=== PATIENT | female | born 1960 | race African-American/Black ===

== ENCOUNTER → 2018-07-13 16:33 | Outpatient (CLI) | payer MEDICARE, MEDICAID, SELFPAY ==
--- NOTE | 2018-07-13 16:46 | CT_ITS ---
STUDY: CT SOFT TISSUE NECK WITH CONTRAST REASON FOR EXAM: Female, 58 years old. Neoplasm of tonsils. RADIATION DOSAGE (If Supplied By Facility): CTDIvol = ( 19.97 ) mGy, DLP = ( 548.49 ) mGycm TECHNIQUE: The patient was scanned in a multi-detector CT scanner. High resolution transaxial imaging was performed following intravenous administration of 100 ml of Isovue 300 contrast material. Sagittal and coronal images were reconstructed. # Of Images: 282 Individualized dose optimization techniques were used for this CT. COMPARISON: None. FINDINGS: Normal bilateral parotid glands. Normal bilateral automatic lump making machine tender spaces. Normal bilateral parapharyngeal spaces. Normal bilateral carotid spaces. Normal bilateral sublingual and submandibular glands and spaces. Normal visualized nasopharynx. Normal retropharyngeal space. Normal perivertebral space. The tonsils are enlarged with 1.8 cm enhancing mass on the right, series 2 image 61/97. The visualized tongue, tongue base and oropharynx are normal. The visualized cervical lymph nodes (levels I-) are within normal size limits, and maintain normal morphology. There is no demonstrated cystic lesion. Normal epiglottis, bilateral vallecula and hypopharynx. The pre-epiglottic and paraglottic adipose spaces are normal. Normal visualized bilateral piriform sinuses, aryepiglottic folds, vocal cords, and arytenoid-cricoid articulations. Normal subglottic trachea. Normal bilateral lobes of the thyroid gland. Normal visualized pulmonary apices. Normal visualized paranasal sinuses. Normal visualized cervical spine. CT/Soft Tissue Neck WITH Contrast IMPRESSION: Enlarged tonsils with mass on the right side. Electronically Signed: Son Gamble MD at 18:08 EDT , Service support ,
[2018-07-14 08:19] LABS: CREATININE FINGERSTICK 0.64 mg/dL (0.55-1.02); EGFR FINGERSTICK > 60 mL/min (>60)
== END ==
PROVIDERS: Family Provider Internal Medicine; PCP Internal Medicine
DX: D10.4 Benign neoplasm of tonsil (principal); J35.1 Hypertrophy of tonsils
CPT/HCPCS: 70491; Q9967

== ENCOUNTER 2018-07-21 12:47 | Day surgery (SDC) | payer MEDICARE, MEDICAID, SELFPAY ==
--- NOTE | 2018-07-21 | TONS_PTH ---
PATIENT: MERE BONILLA [place] [facility] [id number] AGE/SX: 58/F ROOM: RE07/21/[address]: Dr. Iain James MD : 1960 BED: DIS: 07/21/2018 SPEC #: [id number] RECD: 07/21/18 15:12 STATUS: LIGIA REJohnathan #: [id number] NADINE: 07/21/18 00:[address]: Iain James DEPT: SURGICAL PATHOLOGY RECD BY: Prisca Arias ENTERED: 07/21/18 16:00 SP TYPE: TONSILS OTHR DR: Dr. Kasandra Collado MD Tissues: A - Tonsil, NOS B - Tonsil, NOS Procedures: Frozen Section (charge) Frozen Section Add[facility]l ([employer] Surgery Specimen Level III Frozen (no charge) HEADER OPERATION: Bilateral tonsillectomy, frozen section right tonsil PRE-OP DIAGNOSIS: Benign neoplasm of tonsil TISSUE SUBMITTED: A - Right tonsil for FS at 1507, B - Left tonsil FROZEN SECTION DIAGNOSIS A. Right tonsil: Negative for malignancy. YASMANI:shravan 07/21/18 MICROSCOPIC DIAGNOSIS A. Right tonsil, tonsillectomy: Reactive lymphoid hyperplasia. B. Left tonsil, tonsillectomy: Reactive lymphoid hyperplasia. YASMANI:shravan 07/23/18 MICROSCOPIC DESCRIPTION Slides are reviewed. GROSS DESCRIPTION A - Received fresh for frozen section diagnosis labeled with the patient's name is a specimen designated right tonsil. The specimen consists of an ovoid piece of ramos soft tissue consistent with tonsil that weighs 5 gm and measures 2.5 x 2 x 1.5 cm. The external surface is pink-ramos, smooth, glistening and somewhat lobulated. Focally it is hemorrhagic, granular and bears cautery artifact. Serial cross sections through the tonsil reveal normal tonsillar architecture. The specimen is serially sectioned and submitted entirely for frozen section diagnosis in three cassettes. / YASMANI:shravan 07/21/18 B - Received in formalin labeled with the patient's name and designated left tonsil. The specimen consists of a tonsil that weighs 2.7 gm and measures 3 x 1.5 x 0.7 cm. The external surface is pink-ramos, smooth, glistening and somewhat lobulated. Focally it is hemorrhagic, granular and bears cautery artifact. Serial cross sections through the tonsil reveal normal tonsillar architecture. The entire specimen is submitted in two cassettes. / SJ:shravan 07/22/18 TC:5 CPT: 39401 x2, 83601, 98849 x2
[2018-07-21 13:05] VITALS: BP 121/81; PULSE 65; RESP 16; TEMP 37.2; O2SAT 98; BMI 41.1
[2018-07-21 13:26] LABS: Bedside Glucose 80 mg/dL (70-110)
[2018-07-21] MEDS: Bacitracin 500 UNITS/GM PACKET (14:48)
--- NOTE | 2018-07-21 15:38 | PCM.OPRPT ---
Problem List (1) Benign neoplasm of tonsil Status: Chronic (2) Referred otalgia of right ear Status: Acute Report of Operation Date of Procedure: 07/21/18 Pre-Operative Diagnosis: Suspicious mass right tonsil Post-Operative Diagnosis: same Surgery/Procedure Performed:: Tonsillectomy Description of Surgical Findings:: Suzan is a 58-year-old female since evaluation of a firm swelling in the superior pole of the right tonsil. She suffered from tonsillar stones in the past and felt that this was the cause however office examination did not show an obvious impacted stone however there was a firm friable mass of the tonsil and given her complaints of ear pain on that side was worried some for a neoplastic process. CT scan was performed which did show an enhancing 1.8 cm mass in the right superior tonsil and excision for definitive evaluation for possible malignancy was advised that she was eager to proceed. The risks, alternatives, potential benefits, and complications were discussed at length and any questions answered to the patient and/or caregiver's satisfaction. Witnessed informed consent was obtained in the office, and the patient and/or caregiver was agreeable to proceed. Procedure went as follows: The patient was identified in the preoperative holding, brought to the operating room, was placed under general anesthesia and intubated. When appropriate anesthesia was obtained, the head of bed was rotated and the patient prepped and draped in usual sterile fashion. A Ayaz Calvin mouthgag was then placed and the patient suspended from the Baker stand. The oral cavity examined and is noted to have 3+ cryptic tonsillar hypertrophy. A firm mass was palpable within the right tonsil at the superior pole. Beginning on the right side the right tonsil was then grasped with a curved tenaculum and dissected from the underlying capsule with monopolar cautery. This was then sent as specimen. Similar procedure was then completed on the contralateral side. Frozen section evaluation of the right tonsillar mass was felt to be benign and as such no further tissue resection was undertaken. The oral and nasal cavities were then irrigated with saline solution, an NG tube was then placed to decompress the stomach. The patient was then returned to anesthesia, revived and extubated having tolerated the procedure well. Type of Anesthesia:: General Anesthesiologist: Iban Carrero Special Medications: none Specimen's removed: bilateral tonsils Drains: none Estimated Blood Loss (mL): 50 mL Fluids Replaced: 1000 mL Grafts/Implants Used: none - Complications none - Admit VTE Documentation VTE Present on Admission: No VTE Mechan Device Prophylaxis: SCD's VTE Pharm Prophylaxis ordered?: No
--- NOTE | 2018-07-21 15:43 | DCINST_ITS ---
Discharge Activity: Return to Normal Activity, May not drive while taking narcotic pain medications. Call your doctor if your incision/area has: Sudden Increased Bleeding Call your doctor if you observe: Fever of 101 or Higher, Uncontrolled pain Allergies/Adverse Reactions: Allergies meperidine [From Demerol] Allergy (Verified 07/20/18 16:14) Other SLOWS HEART morphine Allergy (Verified 07/20/18 16:14) Nausea/Vom/Diarrhea SURGICAL TAPE Adverse Reaction (Uncoded 07/20/18 16:15) Itching Medications to take at Discharge Amoxicillin [Amoxil] 500 mg PO TID 07/20/18 Atorvastatin Calcium 10 mg PO DAILY 07/20/18 Carvedilol 12.5 mg PO DAILY 07/20/18 Gabapentin [Neurontin] 400 mg PO QHS 07/20/18 Meloxicam 15 mg PO DAILY 07/20/18 Montelukast [Singulair] 10 mg PO DAILY PRN PRN 07/20/18 Omeprazole 40 mg PO DAILY 07/20/18 Spironolactone 25 mg PO DAILY 07/20/18 Vilazodone Hydrochloride [Viibryd] 10 mg PO QHS 07/20/18 Primary Care Physician: Kasandra Collado MD [Primary Care Provider] - Test Results: Test results from this visit will be discussed in further detail at your follow- up appointment, if applicable. Please Follow Up With: Iain James MD When: 2 weeks Proposed Discharge Date: 07/21/18
[2018-07-21 15:44] VITALS: BP 121/81; BP 155/93; PULSE 82; RESP 18; TEMP 36.3; O2SAT 99
[2018-07-21 16:00] VITALS: BP 121/81; BP 146/72; PULSE 62; RESP 16; O2SAT 100
[2018-07-21 16:15] VITALS: BP 121/81; BP 138/84; PULSE 58; RESP 18; O2SAT 100
[2018-07-21 16:16] LABS: Bedside Glucose 83 mg/dL (70-110)
[2018-07-21 16:31] VITALS: BP 121/81; BP 157/90; PULSE 54; RESP 18; TEMP 36.7; O2SAT 100
[2018-07-21] MEDS: Ibuprofen 100 MG/5 ML UDC 400 MG PO (16:52)
[2018-07-21 19:30] VITALS: BP 121/81; BP 132/77; PULSE 88; RESP 16; TEMP 37.9; O2SAT 96
== END 2018-07-21 19:44 | disposition home or self-care (01) ==
LOC: SDC 12:49 → AC 12:49
PROVIDERS: Family Provider Internal Medicine; PCP Internal Medicine; Referring Provider Otolaryngology; Visit Provider Otolaryngology
PROC: (CPT 42826; principal; 2018-07-21 14:15)
DX: D10.4 Benign neoplasm of tonsil (principal); J35.1 Hypertrophy of tonsils; H92.01 Otalgia, right ear; I10 Essential (primary) hypertension; E11.9 Type 2 diabetes mellitus without complications; E78.00 Pure hypercholesterolemia, unspecified; E78.5 Hyperlipidemia, unspecified; M19.90 Unspecified osteoarthritis, unspecified site; K21.9 Gastro-esophageal reflux disease without esophagitis; F32.9 Major depressive disorder, single episode, unspecified; Z79.899 Other long term (current) drug therapy; Z87.891 Personal history of nicotine dependence
CPT/HCPCS: 00170; 42826; 82962; 88304; 88331; 88332; J7120; J2405